=== PATIENT | male | born 1990 | race Caucasian/White ===

== ENCOUNTER 2018-09-29 15:59 | Emergency (ER) | payer MEDICAID ==
[~2018-09-29] VITALS: Ht 188 cm; Wt 104.0 kg
[2018-09-29 16:08] VITALS: BP 119/66
== END 2018-09-29 18:36 | disposition left against medical advice (07) ==
LOC: ER 15:59
DX: M25.579 Pain in unspecified ankle and joints of unspecified foot (principal); Z53.21 Procedure and treatment not carried out due to patient leaving prior to being seen by health care provider